=== PATIENT | female | born 1975 | race Caucasian/White ===

== ENCOUNTER 2017-07-30 07:24 | Inpatient (IN) | payer OTHER ==
[2017-07-30] MEDS: metroNIDAZOLE 500 MG/NS (PMX) 100 ML IVPB (07:00)
[2017-07-30] MEDS: SOD CHLORIDE 0.9% 1,000 ML IV (07:00)
[2017-07-30] MEDS: AMPICILLIN/SULB 3 GM/NS (PMX) 100 ML IVPB (07:00)
[2017-07-30] MEDS ORDERED: FENTAnyl 50 MCG/ML VIAL ×3 (08:19→10:15)
[2017-07-30] MEDS ORDERED: ROCURONIUM 50 MG INJ (08:19)
[2017-07-30] MEDS ORDERED: ONDANSETRON 4 MG INJ (08:19)
[2017-07-30] MEDS ORDERED: GLYCOPYRROLATE 0.4 MG INJ (08:19)
[2017-07-30] MEDS ORDERED: MIDAZOLAM 1 MG/ML 2 ML INJ (08:19)
[2017-07-30] MEDS ORDERED: NEOSTIGMINE 3 MG/3 ML SYRINGE (08:19)
[2017-07-30] MEDS ORDERED: DEXAMETHASONE 4 MG/ML 1 ML INJ (08:19)
[2017-07-30] MEDS ORDERED: PROPOFOL 20 ML (08:19)
[2017-07-30] MEDS ORDERED: CEFAZOLIN 1 GM INJ (08:19)
[2017-07-30] MEDS ORDERED: MEPERIDINE 25 MG INJ IV (10:00)
[2017-07-30] MEDS ORDERED: hydrALAzine 20 MG INJ IV (10:00)
[2017-07-30] MEDS ORDERED: ALBUTEROL 0.083% (NEB) 2.5 MG/3 ML AMP HHN (10:00)
[2017-07-30] MEDS ORDERED: EPHEDrine SULFATE 50 MG/5 ML SYG IV (10:00)
[2017-07-30] MEDS ORDERED: MIDAZOLAM 1 MG/ML 2 ML INJ IV (10:00)
[2017-07-30] MEDS ORDERED: LABETALOL HCL 20MG INJ IV (10:00)
[2017-07-30] MEDS ORDERED: DIPHENHYDRAMINE 50 MG INJ IV (10:00)
[2017-07-30] MEDS ORDERED: OXYCODONE/ACETAMINOPHEN (5/325) TAB PO ×2 (10:00)
[2017-07-30] MEDS ORDERED: IPRATROPIUM (NEB) 0.5 MG/2.5 ML AMP HHN (10:00)
[2017-07-30] MEDS ORDERED: HYDROmorphONE (0.2 MG/ML) 10ML SYG IV ×3 (10:00)
[2017-07-30] MEDS ORDERED: TRIMETHOBENZAMIDE 100 MG/ML VIAL IM (10:00)
[2017-07-30] MEDS ORDERED: FENTAnyl 50 MCG/ML VIAL IV ×3 (10:00)
[2017-07-30] MEDS ORDERED: SUGAMMADEX SODIUM 200 MG/2 ML VIAL IV (11:19)
[2017-07-30] MEDS: D5W-0.45 NACL + KCL 20 MEQ 1,000 ML IV ×2 (11:26→17:21)
[2017-07-30] MEDS ORDERED: ONDANSETRON 4 MG INJ IV (11:30)
[2017-07-30] MEDS: morphine 1 MG/ML 30 ML (PCA) IV ×2 (12:13→17:33)
[2017-07-30] MEDS: ONDANSETRON 4 MG INJ IV (12:13)
[2017-07-30] MEDS: PIPER-TAZO 3.375 GM IV (PMX) 100 ML IVPB ×2 (17:47→23:27)
[2017-07-31] MEDS: D5W-0.45 NACL + KCL 20 MEQ 1,000 ML IV ×4 (04:00→16:02)
[2017-07-31] MEDS: morphine 1 MG/ML 30 ML (PCA) IV (05:31)
[2017-07-31] MEDS: PIPER-TAZO 3.375 GM IV (PMX) 100 ML IVPB ×4 (06:12→23:36)
[2017-07-31 10:06] LABS: ADD MAN DIFF? NO
[2017-07-31 10:20] LABS: WHITE BLOOD COUNT 7.2 10^3/ul (4.8-10.8)
[2017-07-31 10:20] LABS: ABNORMAL IP MESSAGE 1; BASOPHILS % 0.1 % (0.0-2.0); EOSINOPHILS % 0.4 % (0.0-7.0); HEMATOCRIT 27.4 % (37.0-47.0); HEMOGLOBIN 9.8 g/dl (12.0-16.0); LYMPHOCYTES # 0.6 10^3/ul (0.8-2.9); LYMPHOCYTES % 7.7 % (15.0-51.0); MEAN CORPUSCULAR HEMOGLOBIN 36.7 pg (29.0-33.0); MEAN CORPUSCULAR HGB CONC 35.8 g/dl (32.0-37.0); MEAN CORPUSCULAR VOLUME 102.6 fl (82.0-101.0); MEAN PLATELET VOLUME 9.5 fl (7.4-10.4); MONOCYTE # 0.5 10^3/ul (0.3-0.9); MONOCYTES % 6.5 % (0.0-11.0); NEUTROPHIL # 6.1 10^3/ul (1.6-7.5); PLATELET COUNT 176 10^3/UL (140-415); RED BLOOD COUNT 2.67 10^6/ul (4.20-5.40); RED CELL DISTRIBUTION WIDTH 11.5 % (11.5-14.5)
[2017-07-31 10:26] LABS: POSITIVE DIFF @See below
[2017-07-31 10:38] LABS: ANION GAP 10 (8-16); BLOOD UREA NITROGEN 8 mg/dl (7-20); CALCIUM 8.6 mg/dl (8.4-10.2); CARBON DIOXIDE 29 mmol/L (21-31); CHLORIDE 106 mmol/L (97-110); CREATININE 0.64 mg/dl (0.44-1.00); GLUCOSE 104 mg/dl (70-220); MAGNESIUM 1.5 mg/dl (1.7-2.5); PHOSPHORUS 3.1 mg/dl (2.5-4.9); POTASSIUM 3.6 mmol/L (3.5-5.1); SODIUM 141 mmol/L (135-144)
[2017-07-31 10:42] LABS: INR 1.07; PT RATIO 1.1
[2017-07-31 10:43] LABS: PARTIAL THROMBOPLASTIN TIME 22.4 Sec (25.0-35.0)
[2017-07-31] MEDS ORDERED: morphine 2 MG INJ IV (14:30)
[2017-07-31] MEDS: KETOROLAC 30 MG INJ IV ×2 (15:09→20:09)
[2017-07-31] MEDS: MAGNESIUM SULFATE 2 GM/50 ML 50 ML IVPB (21:00)
[2017-07-31] MEDS: ACETAMINOPHEN 1000MG/100ML IV 100 ML IVPB (23:36)
[2017-08-01] MEDS: KETOROLAC 30 MG INJ IV ×4 (02:28→20:52)
[2017-08-01] MEDS: D5W-0.45 NACL + KCL 20 MEQ 1,000 ML IV ×2 (02:29→15:12)
[2017-08-01] MEDS: PIPER-TAZO 3.375 GM IV (PMX) 100 ML IVPB ×4 (05:56→23:51)
[2017-08-01 10:21] LABS: ADD MAN DIFF? NO
[2017-08-01 10:25] LABS: WHITE BLOOD COUNT 7.5 10^3/ul (4.8-10.8)
[2017-08-01 10:25] LABS: ABNORMAL IP MESSAGE 1; BASOPHILS % 0.4 % (0.0-2.0); EOSINOPHILS # 0.1 10^3/ul (0.0-0.5); EOSINOPHILS % 0.8 % (0.0-7.0); HEMATOCRIT 30.1 % (37.0-47.0); HEMOGLOBIN 10.3 g/dl (12.0-16.0); LYMPHOCYTES # 0.5 10^3/ul (0.8-2.9); LYMPHOCYTES % 6.3 % (15.0-51.0); MEAN CORPUSCULAR HEMOGLOBIN 35.3 pg (29.0-33.0); MEAN CORPUSCULAR HGB CONC 34.2 g/dl (32.0-37.0); MEAN CORPUSCULAR VOLUME 103.1 fl (82.0-101.0); MEAN PLATELET VOLUME 9.5 fl (7.4-10.4); MONOCYTE # 0.5 10^3/ul (0.3-0.9); MONOCYTES % 7.1 % (0.0-11.0); NEUTROPHIL # 6.3 10^3/ul (1.6-7.5); NEUTROPHILS % 84.9 % (39.0-77.0); PLATELET COUNT 189 10^3/UL (140-415); POSITIVE DIFF @See below; RED BLOOD COUNT 2.92 10^6/ul (4.20-5.40); RED CELL DISTRIBUTION WIDTH 11.2 % (11.5-14.5)
[2017-08-01 10:44] LABS: INR 1.12; PROTIME 14.6 Sec (11.9-14.9); PT RATIO 1.1
[2017-08-01 10:45] LABS: PARTIAL THROMBOPLASTIN TIME 24.4 Sec (25.0-35.0)
[2017-08-01 10:47] LABS: ANION GAP 10 (8-16); BLOOD UREA NITROGEN 6 mg/dl (7-20); CALCIUM 8.4 mg/dl (8.4-10.2); CARBON DIOXIDE 32 mmol/L (21-31); CHLORIDE 104 mmol/L (97-110); CREATININE 0.56 mg/dl (0.44-1.00); GLUCOSE 112 mg/dl (70-220); MAGNESIUM 2.2 mg/dl (1.7-2.5); PHOSPHORUS 2.3 mg/dl (2.5-4.9); POTASSIUM 3.3 mmol/L (3.5-5.1); SODIUM 143 mmol/L (135-144)
[2017-08-01] MEDS: POTASSIUM PHOSPHATE 15 MM in SOD CHLORIDE 0.9% 250 ML IVPB (16:48)
[2017-08-02] MEDS: D5W-0.45 NACL + KCL 20 MEQ 1,000 ML IV ×3 (01:10→16:12)
[2017-08-02] MEDS: KETOROLAC 30 MG INJ IV ×2 (03:18→08:38)
[2017-08-02] MEDS: PIPER-TAZO 3.375 GM IV (PMX) 100 ML IVPB ×3 (05:20→18:22)
[2017-08-02 10:34] LABS: ADD MAN DIFF? NO
[2017-08-02 10:36] LABS: WHITE BLOOD COUNT 4.7 10^3/ul (4.8-10.8)
[2017-08-02 10:36] LABS: BASOPHILS % 0.4 % (0.0-2.0); EOSINOPHILS # 0.2 10^3/ul (0.0-0.5); EOSINOPHILS % 3.4 % (0.0-7.0); HEMOGLOBIN 10.3 g/dl (12.0-16.0); LYMPHOCYTES # 0.6 10^3/ul (0.8-2.9); LYMPHOCYTES % 12.9 % (15.0-51.0); MEAN CORPUSCULAR HEMOGLOBIN 35.4 pg (29.0-33.0); MEAN CORPUSCULAR HGB CONC 34.3 g/dl (32.0-37.0); MEAN CORPUSCULAR VOLUME 103.1 fl (82.0-101.0); MEAN PLATELET VOLUME 9.8 fl (7.4-10.4); MONOCYTE # 0.4 10^3/ul (0.3-0.9); MONOCYTES % 8.7 % (0.0-11.0); NEUTROPHIL # 3.5 10^3/ul (1.6-7.5); NEUTROPHILS % 74.2 % (39.0-77.0); PLATELET COUNT 185 10^3/UL (140-415); RED BLOOD COUNT 2.91 10^6/ul (4.20-5.40)
[2017-08-02 10:55] LABS: ANION GAP 13 (8-16); BLOOD UREA NITROGEN 5 mg/dl (7-20); CALCIUM 8.7 mg/dl (8.4-10.2); CARBON DIOXIDE 29 mmol/L (21-31); CHLORIDE 104 mmol/L (97-110); CREATININE 0.53 mg/dl (0.44-1.00); GLUCOSE 109 mg/dl (70-220); MAGNESIUM 2.2 mg/dl (1.7-2.5); PHOSPHORUS 3.5 mg/dl (2.5-4.9); SODIUM 142 mmol/L (135-144)
[2017-08-02 11:01] LABS: INR 1.11; PROTIME 14.5 Sec (11.9-14.9); PT RATIO 1.1
[2017-08-02 11:02] LABS: PARTIAL THROMBOPLASTIN TIME 24.5 Sec (25.0-35.0)
[2017-08-03] MEDS: PIPER-TAZO 3.375 GM IV (PMX) 100 ML IVPB ×4 (00:28→17:47)
[2017-08-03] MEDS: D5W-0.45 NACL + KCL 20 MEQ 1,000 ML IV (05:35)
[2017-08-03 06:30] LABS: ADD MAN DIFF? NO; BASOPHILS % 0.8 % (0.0-2.0); EOSINOPHILS # 0.3 10^3/ul (0.0-0.5); EOSINOPHILS % 7.8 % (0.0-7.0); HEMATOCRIT 29.3 % (37.0-47.0); HEMOGLOBIN 10.2 g/dl (12.0-16.0); LYMPHOCYTES # 0.7 10^3/ul (0.8-2.9); LYMPHOCYTES % 16.9 % (15.0-51.0); MEAN CORPUSCULAR HEMOGLOBIN 35.9 pg (29.0-33.0); MEAN CORPUSCULAR HGB CONC 34.8 g/dl (32.0-37.0); MEAN CORPUSCULAR VOLUME 103.2 fl (82.0-101.0); MEAN PLATELET VOLUME 9.5 fl (7.4-10.4); MONOCYTE # 0.3 10^3/ul (0.3-0.9); MONOCYTES % 7.6 % (0.0-11.0); NEUTROPHIL # 2.7 10^3/ul (1.6-7.5); NEUTROPHILS % 66.6 % (39.0-77.0); PLATELET COUNT 201 10^3/UL (140-415); RED BLOOD COUNT 2.84 10^6/ul (4.20-5.40); RED CELL DISTRIBUTION WIDTH 11.1 % (11.5-14.5)
[2017-08-03 07:20] LABS: ANION GAP 13 (8-16); BLOOD UREA NITROGEN 5 mg/dl (7-20); CALCIUM 8.8 mg/dl (8.4-10.2); CARBON DIOXIDE 27 mmol/L (21-31); CHLORIDE 107 mmol/L (97-110); CREATININE 0.61 mg/dl (0.44-1.00); GLUCOSE 98 mg/dl (70-220); POTASSIUM 3.6 mmol/L (3.5-5.1); SODIUM 143 mmol/L (135-144)
[2017-08-03] MEDS ORDERED: HYDROCODONE/APAP (5/325) TAB PO (12:30)
[2017-08-03] MEDS ORDERED: ACETAMINOPHEN 325 MG TAB PO (12:30)
[2017-08-03] MEDS: ACETAMINOPHEN 1000MG/100ML IV 100 ML IVPB (14:06)
[2017-08-04] MEDS: PIPER-TAZO 3.375 GM IV (PMX) 100 ML IVPB ×4 (00:03→18:00)
[2017-08-04 06:15] LABS: ADD MAN DIFF? NO
[2017-08-04 06:32] LABS: WHITE BLOOD COUNT 3.6 10^3/ul (4.8-10.8)
[2017-08-04 06:32] LABS: ABNORMAL IP MESSAGE 1; BASOPHILS % 0.8 % (0.0-2.0); EOSINOPHILS # 0.3 10^3/ul (0.0-0.5); EOSINOPHILS % 9.2 % (0.0-7.0); HEMATOCRIT 30.5 % (37.0-47.0); HEMOGLOBIN 10.2 g/dl (12.0-16.0); LYMPHOCYTES # 0.5 10^3/ul (0.8-2.9); LYMPHOCYTES % 14.2 % (15.0-51.0); MEAN CORPUSCULAR HEMOGLOBIN 35.1 pg (29.0-33.0); MEAN CORPUSCULAR HGB CONC 33.4 g/dl (32.0-37.0); MEAN CORPUSCULAR VOLUME 104.8 fl (82.0-101.0); MEAN PLATELET VOLUME 9.6 fl (7.4-10.4); MONOCYTE # 0.3 10^3/ul (0.3-0.9); MONOCYTES % 8.1 % (0.0-11.0); NEUTROPHIL # 2.4 10^3/ul (1.6-7.5); NEUTROPHILS % 67.4 % (39.0-77.0); PLATELET COUNT 230 10^3/UL (140-415); RED BLOOD COUNT 2.91 10^6/ul (4.20-5.40)
[2017-08-04 06:33] LABS: POSITIVE DIFF @See below
[2017-08-04 06:44] LABS: ANION GAP 9 (8-16); BLOOD UREA NITROGEN 6 mg/dl (7-20); CALCIUM 9.1 mg/dl (8.4-10.2); CARBON DIOXIDE 31 mmol/L (21-31); CHLORIDE 109 mmol/L (97-110); CREATININE 0.66 mg/dl (0.44-1.00); GLUCOSE 91 mg/dl (70-220); POTASSIUM 4.1 mmol/L (3.5-5.1); SODIUM 145 mmol/L (135-144)
== END 2017-08-04 19:35 | disposition home or self-care (01) | DRG 331 ==
LOC: SDS 07:24 → REC 11:26 → MS2 15:15
PROC: 0DQB0ZZ Repair Ileum, Open Approach (ICD-10-PCS; principal; 2017-07-30 09:00)
DX: Z43.2 Encounter for attention to ileostomy (principal); E87.6 Hypokalemia; Z85.048 Personal history of other malignant neoplasm of rectum, rectosigmoid junction, and anus
CPT/HCPCS: 80048; 83735; 84100; 84703; 85025; 85610; 85730; 87086; 88305